=== PATIENT | male | born 1980 ===

== ENCOUNTER → 2023-04-13 | Emergency (ER) | payer BC, OTHER ==
[~2023-04-13] MED LIST: IBUPROFEN 200 MG TAB PO ONE; IBUPROFEN 400 MG TAB ONE
--- NOTE | 2023-04-13 16:25 | ER ---
Nurse's Notes [facility] Name: Anibal Barlow Age: 42 yrs Sex: Male : 1980 Arrival Date: 04/13/2023 Time: 15:18 Bed IW1 Private MD: Diagnosis: Influenza due to identified novel influenza A virus-B;Other specified disorders of teeth and supporting structures Presentation: 04/13 15:37 Chief complaint: Patient states: FEVER, CONGESTION LEFT DENTAL PAIN SINCE LAST NIGHT. db STATES TOOK MUCINEX. Coronavirus screen: Client denies travel out of the [place] in the last 14 days. At this time, the client does not indicate any symptoms associated with coronavirus-19. Ebola Screen: Patient negative for fever greater than or equal to 101.5 degrees Fahrenheit, and additional compatible Ebola Virus Disease symptoms Patient denies exposure to infectious person. Patient denies travel to an Ebola-affected area in the 21 days before illness onset. No symptoms or risks identified at this time. Initial Sepsis Screen: Does the patient meet any 2 criteria? Temp <36.0*C (96.8*F)) or > 38.3*C (100.9*F). HR > 90 bpm. Yes Does the patient have a suspected source of infection? No. Patient's initial sepsis screen is negative. Risk Assessment: Do you want to hurt yourself or someone else? Patient reports no desire to harm self or others. Onset of symptoms was April 13, 2023. 15:37 Method Of Arrival: Ambulatory db 15:37 Acuity: SUKHWINDER 3 db Triage Assessment: 15:39 General: Appears in no apparent distress. uncomfortable, Behavior is calm, cooperative. db Pain: Complains of pain in mouth. EENT: Reports pain in mouth since YESTERDAY WITH LOWER BACK DENTAL PAIN. Neuro: Level of Consciousness is awake, alert, obeys commands, Oriented to person, place, time, situation. Historical: - Allergies: 15:39 No Known Drug Allergies; db - Home Meds: 15:39 None [Active]; db - Immunization history:: Adult Immunizations unknown. - Social history:: Smoking status: Patient reports the use of cigarette tobacco products, denies chronic smoking, but will smoke occasionally. Screenin:15 [facility] ED Fall Risk Assessment (Adult) History of falling in the last 3 months, db including since admission No falls in past 3 months (0 pts) Confusion or Disorientation No (0 pts) Intoxicated or Sedated No (0 pts) Impaired Gait No (0 pts) Mobility Assist Device Used No (0 pt) Altered Elimination No (0 pt) Score/Fall Risk Level 0 - 2 = Low Risk Oriented to surroundings, Maintained a safe environment. Abuse screen: Denies threats or abuse. Denies injuries from another. Nutritional screening: No deficits noted. Tuberculosis screening: No symptoms or risk factors identified. Assessment: 17:14 Reassessment: Patient appears in no apparent distress at this time. Patient and/or db family updated on plan of care and expected duration. Pain level reassessed. Patient is alert, oriented x 3, equal unlabored respirations, skin warm/dry/pink. General: Appears in no apparent distress. comfortable, Behavior is calm, cooperative. Neuro: Level of Consciousness is awake, alert, obeys commands, Oriented to person, place, time, situation. Vital Signs: 15:37 BP 133 / 90; Pulse 111; Resp 18; Temp 103.1(O); Pulse Ox 100% ; Weight 99.79 kg; Height db 6 ft. 2 in. ; 17:13 BP 140 / 92; Pulse 91; Resp 18; Temp 99.4; Pulse Ox 95% ; db 15:37 Body Mass Index 28.25 (99.79 kg, 187.96 cm) db ED Course: 15:23 Patient arrived in ED. mg5 15:30 Debra Rodriguez FNP-C is PSYCHIATRICP. kb 15:30 Yaron Sheprad MD is Attending Physician. kb 15:39 Triage completed. db 15:39 Arm band placed on left wrist. Patient placed in waiting room. db 15:42 COVID-19 SARS RT PCR Sent. db 15:42 Flu Sent. db 16:12 Kayce Malave, RN is Primary Nurse. db 17:15 Patient has correct armband on for positive identification. Provided Education on: db DISCHARGE AND FEVER. 17:15 No provider procedures requiring assistance completed. Patient did not have IV access db during this emergency room visit. Administered Medications: 16:23 Drug: Ibuprofen PO 600 mg PO once Route: PO; db 17:16 Follow up: Response: No adverse reaction db Medication: 17:15 VIS not applicable for this client. db Outcome: 16:25 Discharge ordered by MD. cortez 17:14 Discharged to home ambulatory, db 17:14 Condition: stable 17:14 Discharge instructions given to patient, Instructed on discharge instructions, follow up and referral plans. Prescriptions given X 2, 17:16 Patient left the ED. db Signatures: Debra Rodriguez FNP-C FNP-Ckb Benton, Danielle RN RN db Yesica Valencia mg5 Corrections: (The following items were deleted from the chart) 15:40 15:39 Allergies: tb test; db db 17:14 17:13 Pulse 91bpm; Resp 18bpm; Pulse Ox 95%; Temp 99.4F; db db
--- NOTE | 2023-04-13 16:25 | EDPHYS ---
Physician Documentation [facility] Name: Anibal Barlow Age: 42 yrs Sex: Male : 1980 Arrival Date: 04/13/2023 Time: 15:18 Bed IW1 Private MD: ED Physician Yaron Shepard HPI: 04/13 16:21 This 42 yrs old Male presents to ER via Ambulatory with complaints of Toothache - kb infection, Fever. 16:21 Pt is a 42 year old male who presents for fever, chills, runny nose and toothpain that kb started yesterday. States he has had problems with his teeth in the past, but never had "flu symptoms" with it. . Historical: - Allergies: 15:39 No Known Drug Allergies; db - Home Meds: 15:39 None [Active]; db - Immunization history:: Adult Immunizations unknown. - Social history:: Smoking status: Patient reports the use of cigarette tobacco products, denies chronic smoking, but will smoke occasionally. ROS: 16:21 Respiratory: Negative for shortness of breath, cough, wheezing, and pleuritic chest kb pain, 16:21 Constitutional: Positive for chills, fever, 16:21 ENT: Positive for dental pain, rhinorrhea, 16:21 All other systems are negative, Exam: 16:21 Constitutional: This is a well developed, well nourished patient who is awake, alert, kb and in no acute distress. Head/Face: Normocephalic, atraumatic. Cardiovascular: Regular rate Respiratory: Respirations even and unlabored. No increased work of breathing. Talking in full sentences Skin: Warm, dry with normal turgor. Normal color. MS/ Extremity: Pulses equal, no cyanosis. Neurovascular intact. Full, normal range of motion. Neuro: Awake and alert, GCS 15, oriented to person, place, time, and situation. Moves all extremities. Normal gait. 16:21 ENT: Dental exam: dental caries, gum swelling, that is mild, pain, that is mild, that is moderate, Vital Signs: 15:37 BP 133 / 90; Pulse 111; Resp 18; Temp 103.1(O); Pulse Ox 100% ; Weight 99.79 kg; Height db 6 ft. 2 in. ; 17:13 BP 140 / 92; Pulse 91; Resp 18; Temp 99.4; Pulse Ox 95% ; db 15:37 Body Mass Index 28.25 (99.79 kg, 187.96 cm) db MDM: 15:30 Patient medically screened. kb 16:23 Differential diagnosis: dental caries, gingivitis, dental abscess, pericoronitis, flu, kb covid. Data reviewed: vital signs, nurses notes. Counseling: I had a detailed discussion with the patient and/or guardian regarding the historical points, exam findings, and any diagnostic results supporting the discharge/admit diagnosis, lab results, the need for outpatient follow up, a dentist, a family practitioner, to return to the emergency department if symptoms worsen or persist or if there are any questions or concerns that arise at home. 04/13 15:38 Order name: Flu; Complete Time: 16:14 kb 04/13 15:38 Order name: COVID-19 SARS RT PCR; Complete Time: 16:21 kb Administered Medications: 16:23 Drug: Ibuprofen PO 600 mg PO once Route: PO; db 17:16 Follow up: Response: No adverse reaction db Disposition: 17:56 Co-signature as Attending Physician, Yaron Shepard MD I reviewed the patient's care rn provided by the Advanced Practice Provider and agree with the diagnosis and treatment plan. Disposition Summary: 04/13/23 16:25 Discharge Ordered Notes: Location: Home kb Condition: Stable kb Diagnosis - Influenza due to identified novel influenza A virus - B kb - Other specified disorders of teeth and supporting structures kb Followup: kb - With: Emergency Department - When: As needed - Reason: Worsening of condition Followup: kb - With: Private Physician - When: 2 - 3 days - Reason: Recheck today's complaints, Continuance of care, Re-evaluation by your physician Discharge Instructions: - Discharge Summary Sheet kb - Dental Pain, [id number] kb - Influenza, Adult, [id number] kb - Dental Abscess, [id number] kb Forms: - Medication Reconciliation Form kb - Thank You Letter kb - Antibiotic Education kb - Prescription Opioid Use kb - Patient Portal Instructions kb - Leadership Thank You Letter kb - Work release form db Prescriptions: - Amoxicillin 875 mg Oral Tablet - take 1 tablet ORAL route every 12 hours for 10 days; 20 tablet; Refills: 0, kb Product Selection Permitted - Tamiflu 75 mg Oral capsule - take 1 tablet ORAL route every 12 hours for 5 days; 10 tablet; Refills: 0, kb Product Selection Permitted Signatures: Dispatcher [employer] Debra Dunaway, DANILOC SUBWAY OPERATOR-Yaron Huang MD MD rn Benton, Danielle, RN RN db Corrections: (The following items were deleted from the chart) 15:40 15:39 Allergies: tb test; db db
[2023-04-13 20:00] VITALS: BP 140/92; TEMP 99.4; O2SAT 95
== END ==
LOC: ER 15:18
DX: J10.1 Influenza due to other identified influenza virus with other respiratory manifestations (principal); K08.89 Other specified disorders of teeth and supporting structures; Z11.52 Encounter for screening for COVID-19
CPT/HCPCS: 87635; 87804